=== PATIENT | female | born 1995 | race Two or more races ===

== ENCOUNTER 2020-11-16 14:30 | Outpatient (CLI) | payer OTHER | END 2020-11-16 15:42 | disposition home or self-care (01) | LOC: PRENATAL 14:30 | PROVIDERS: ATTEND Obstetrics & Gynecology Maternal & Fetal Medicine | DX: O35.0XX1 Maternal care for (suspected) central nervous system malformation in fetus, fetus 1 (principal); O35.3XX1 Maternal care for (suspected) damage to fetus from viral disease in mother, fetus 1; O98.512 Other viral diseases complicating pregnancy, second trimester; O28.1 Abnormal biochemical finding on antenatal screening of mother; Z36.89 Encounter for other specified antenatal screening; Z3A.21 21 weeks gestation of pregnancy ==

== ENCOUNTER 2021-02-01 09:03 | Outpatient (CLI) | payer OTHER | END 2021-02-01 09:52 | disposition home or self-care (01) | LOC: PRENATAL 09:03 | PROVIDERS: ATTEND Obstetrics & Gynecology Maternal & Fetal Medicine | DX: O26.843 Uterine size-date discrepancy, third trimester (principal); O36.8131 Decreased fetal movements, third trimester, fetus 1; O35.0XX1 Maternal care for (suspected) central nervous system malformation in fetus, fetus 1; O28.1 Abnormal biochemical finding on antenatal screening of mother; Z36.89 Encounter for other specified antenatal screening; Z3A.33 33 weeks gestation of pregnancy ==

== ENCOUNTER 2021-03-23 13:00 | Inpatient (IN) | payer OTHER ==
[~2021-03-23] VITALS: Ht 170.2 cm; Wt 77.6 kg
[2021-04-03] MEDS ORDERED: PRENATABS RX T1 EACH PO (14:43)
[2021-04-03] MEDS ORDERED: B COMPLEX1 EACH PO (14:43)
[2021-04-03] MEDS ORDERED: VITAMIN B-121000 MC4 PO (14:43)
[2021-04-03] MEDS ORDERED: VITAMIN D310 MCG/1 M PO (14:44)
== END 2021-04-07 15:38 | disposition home or self-care (01) | DRG 807 ==
LOC: OB/GYN 03-27 13:00 → LDR 04-03 13:54 → OB/GYN 04-03 13:54
PROVIDERS: ADMIT Obstetrics & Gynecology; ATTEND Obstetrics & Gynecology
PROC: 4A1HXCZ Monitoring of Products of Conception, Cardiac Rate, External Approach (ICD-10-PCS; 2021-04-03)
PROC: 10E0XZZ Delivery of Products of Conception, External Approach (ICD-10-PCS; principal; 2021-04-04)
DX: O48.0 Post-term pregnancy (principal); Z37.0 Single live birth; Z3A.41 41 weeks gestation of pregnancy